=== PATIENT | male | born 1930 | race Caucasian/White ===

== ENCOUNTER 2017-02-25 15:00 | Outpatient (RCR) | payer OTHER ==
[~2017-02-25 15:00] MED LIST: ACETAMINOP160 MG/52 ORAL; BABY ASPIRIN81 M1 ORAL; COZAAR50 MG ORAL; EPINASTINE HCL5 ML OPHTHALM; EX-LAX MAXIMUM25 MG PO; FLOMAX0.4 MG ORAL; LORAZEPAM0.5 MG ORAL; NORVASC5 MG ORAL; OMEPRAZOLE20 M2 ORAL; PRAMOXINE 1% TOPIC; VITAMIN D-32000 UNI1 PO; ZOLPIDEM TARTRAT5 MG ORAL
== END 2017-02-26 | disposition home or self-care (01) ==
LOC: PTY 15:00
DX: M25.561 Pain in right knee (principal); M25.562 Pain in left knee
CPT/HCPCS: 97110; 97140; 97162; G0283

== ENCOUNTER → 2017-03-28 | Outpatient (RCR) | payer OTHER | END | disposition home or self-care (01) | LOC: PTY 03-07 09:00 | DX: M25.561 Pain in right knee (principal); M25.562 Pain in left knee; G89.29 Other chronic pain | CPT/HCPCS: 97110; 97140; G0283 ==